=== PATIENT | male | born 1945 | race Caucasian/White ===

== ENCOUNTER 2018-05-16 07:57 | Day surgery (SDC) | payer MEDICARE, BC ==
[2018-05-16] VITALS (7 sets, daily range): BP systolic 92–114; BP diastolic 57–71
[~2018-05-16] VITALS: Ht 182.9 cm; Wt 75.9 kg
[2018-05-16] MEDS ORDERED: LIDOcaine 1%/PF 5ML 10 MG/ML VIAL IJ ONE (08:20)
[2018-05-16] MEDS ORDERED: albumin (human) 25% 100 ML IV solution IV PRN (08:30)
[2018-05-16] MEDS ORDERED: normal saline 1000ml 1,000 ML IV PRN (08:30)
[2018-05-16] MEDS ORDERED: GABA600T2 PO (10:09)
[2018-05-16] MEDS ORDERED: CHOL10002 PO (10:09)
[2018-05-16] MEDS ORDERED: SPIR50TA5 PO (10:09)
[2018-05-16] MEDS ORDERED: FURO40TA4 PO (10:09)
[2018-05-16] MEDS ORDERED: IRON150C8 PO (10:09)
[2018-05-16] MEDS ORDERED: CYAN-19 PO (10:09)
[2018-05-16] MEDS ORDERED: MULT-38 PO (10:09)
== END 2018-05-16 10:55 | disposition home or self-care (01) ==
LOC: SSTAY O 07:57
PROVIDERS: ATTEND Radiology Vascular & Interventional Radiology
DX: J90 Pleural effusion, not elsewhere classified (principal); R18.8 Other ascites; I25.10 Atherosclerotic heart disease of native coronary artery without angina pectoris; Z95.1 Presence of aortocoronary bypass graft; Z86.718 Personal history of other venous thrombosis and embolism; Z79.891 Long term (current) use of opiate analgesic; Z79.899 Other long term (current) drug therapy; Z98.890 Other specified postprocedural states
CPT/HCPCS: 32555; 49083; 71045; 87070; A6258; J2001; J7030

== ENCOUNTER 2018-06-04 08:26 | Day surgery (SDC) | payer MEDICARE, BC ==
[2018-06-04] VITALS (9 sets, daily range): BP systolic 80–120; BP diastolic 39–69
[~2018-06-04] VITALS: Ht 182.9 cm; Wt 74.5 kg
[~2018-06-04 08:26] MED LIST: CHOL10002 PO; CYAN-19 PO; FURO40TA4 PO; GABA600T2 PO; IRON150C8 PO; LIDOcaine 1%/PF 5ML 10 MG/ML VIAL SQ ONE; MULT-38 PO; SPIR50TA5 PO
== END 2018-06-04 10:10 | disposition home or self-care (01) ==
LOC: SSTAY O 08:26
PROVIDERS: ATTEND Radiology Diagnostic Radiology
DX: J90 Pleural effusion, not elsewhere classified (principal); K74.3 Primary biliary cirrhosis; I25.810 Atherosclerosis of coronary artery bypass graft(s) without angina pectoris; Z86.718 Personal history of other venous thrombosis and embolism; Z79.891 Long term (current) use of opiate analgesic; Z95.1 Presence of aortocoronary bypass graft; Z98.890 Other specified postprocedural states; Z79.899 Other long term (current) drug therapy
CPT/HCPCS: 32555; 71045; J2001